=== PATIENT | male | born 1995 | race Caucasian/White ===

== ENCOUNTER 2019-04-01 19:28 | Emergency (ER) | payer OTHER ==
[~2019-04-01] VITALS: Ht 180.3 cm; Wt 80.7 kg
[2019-04-01] MEDS ORDERED: NAPR220C14 PO (20:21)
[2019-04-01] MEDS ORDERED: IBUPROFEN 800 MG TAB PO ONE (21:00)
[2019-04-01 21:09] VITALS: BP 135/69
--- NOTE | 2019-04-02 08:47 | REP ---
Right shoulder three views : There is no fracture or dislocation. Mineralization and joint spaces are normal. There are no calcifications or foreign bodies. Impression: Negative right shoulder . Electronically Signed by Daren Mcclelland MD 04/02/2019 08:38 A
== END 2019-04-01 21:16 | disposition home or self-care (01) ==
LOC: M ED 19:28
DX: S43.51XA Sprain of right acromioclavicular joint, initial encounter (principal); W00.9XXA Unspecified fall due to ice and snow, initial encounter; Y92.9 Unspecified place or not applicable; Y93.23 Activity, snow (alpine) (downhill) skiing, snowboarding, sledding, tobogganing and snow tubing; Y99.9 Unspecified external cause status